=== PATIENT | female | born 1970 | race Caucasian/White ===

== ENCOUNTER → 2018-06-13 | Outpatient (CLI) | payer OTHER | LOC: LAB.O 15:16 | PROVIDERS: ATTEND Physician Assistant | DX: L29.9 Pruritus, unspecified (principal) ==

== ENCOUNTER 2018-10-11 | Emergency (ER) | payer OTHER | END 2018-10-11 20:06 | disposition home or self-care (01) ==

== ENCOUNTER → 2019-03-25 | Outpatient (CLI) | payer OTHER | LOC: LAB.O 15:21 | PROVIDERS: ATTEND Physician Assistant | DX: L29.0 Pruritus ani (principal); Z79.899 Other long term (current) drug therapy ==

== ENCOUNTER → 2019-08-26 | Outpatient (CLI) | payer OTHER | LOC: LAB.O 08-20 07:57 | PROVIDERS: ATTEND Physician Assistant | DX: Z79.899 Other long term (current) drug therapy (principal); L20.89 Other atopic dermatitis ==

== ENCOUNTER → 2020-04-03 | Outpatient (CLI) | payer OTHER | LOC: LAB.O 07:12 | PROVIDERS: ATTEND Physician Assistant | DX: L29.9 Pruritus, unspecified (principal); R23.8 Other skin changes; Z79.899 Other long term (current) drug therapy ==